=== PATIENT | female | born 1935 | race Caucasian/White ===

== ENCOUNTER 2022-04-21 10:47 | Observation (INO) ==
[2022-04-21 11:56] LABS: Basophils # 0.1 10*3/uL (0.0-0.2); Basophils % 0.7 % (0.0-0.8); Eosinophils # 0.2 10*3/uL (0.0-0.87); Eosinophils % 1.8 % (0.00-10.9); Hematocrit 50.5 VOL% (35.7-47.0); Hemoglobin 17.4 GM/DL (12.0-16.0); Immature Granulocytes % 0.3 %; Immature Granulocytes Absolute 0.03 #; Lymphocytes % 37.3 % (21.3-54.2); Mean Corpuscular HGB Conc 34.5 GM/DL (32-36); Mean Corpuscular Volume 94.2 FL (87-102); Mean Platelet Volume 10.2 FL (9.6-12.0); Monocytes # 0.9 10*3/uL (0.11-0.8); Monocytes % 8.1 % (1.7-12.7); Neutrophils % 51.8 % (38.7-73.9); Platelet Count 222 T/CUMM (130-400); Red Blood Count 5.36 MC/CUMM (3.8-5.5); Red Cell Distribution Width 13.6 % (9.3-17.3); White Blood Count 10.8 T/CUMM (4-12)
[2022-04-21 12:05] LABS: PT Patient Result 11.4 SECS (10.1-12.1)
[2022-04-21 12:14] LABS: Albumin 3.7 G/DL (3.4-5.0); Bilirubin,Total 0.7 MG/DL (0.20-1.00); Calcium 9.6 MG/DL (8.5-10.1); Osmolality,Calculated 284.1 MOS/KG (273-304); Potassium 3.6 MMOL/L (3.5-5.1); Total Protein 6.8 G/DL (6.4-8.2)
[2022-04-21 12:16] LABS: Bilirubin,Urine Negative (Negative); Blood, Urine Negative (Negative); Glucose,Urine (UA) Negative (Negative); Ketones,Urine Negative (Negative); Mucus,Urine Few /LPF (Occasional); Nitrite,Urine Negative (Negative); Protein,Urine 30 mg/dL (Negative); RBC,Urine 1 /HPF (0-4); Squamous Epithelial Cell,Urine Few /HPF (0-10); Transitional Epi Cells,Urine Occasional /HPF (<1); Urine Appearance Clear (Clear); Urine Color Yellow (Yellow); Urine Specific Gravity 1.025 (1.001-1.035)
[2022-04-21 12:35] LABS: Eosinophils 2 % (0-10); Lymphocytes 27 % (20-55); Total Cells Counted 100
[2022-04-21 12:36] LABS: Platelet Estimate Normal
[2022-04-21] MEDS ORDERED: hydrALAZINE 20 MG/1 ML VIAL IV PRN (13:48)
[2022-04-21] MEDS ORDERED: ACETAMINOPHEN 325 MG TABLET PO PRN (13:48)
[2022-04-21] MEDS ORDERED: ONDANSETRON 4 MG/2 ML VIAL IV PRN (13:48)
[2022-04-21] MEDS: ENOXAPARIN 40 MG/0.4 ML SYRINGE SUBCUT SCH (21:32)
[2022-04-22 05:34] LABS: Basophils # 0.1 10*3/uL (0.0-0.2); Basophils % 0.7 % (0.0-0.8); Eosinophils # 0.2 10*3/uL (0.0-0.87); Eosinophils % 1.9 % (0.00-10.9); Hematocrit 49.9 VOL% (35.7-47.0); Hemoglobin 17.1 GM/DL (12.0-16.0); Immature Granulocytes % 0.3 %; Immature Granulocytes Absolute 0.04 #; Lymphocytes # 4.9 10*3/uL (1.4-4.0); Lymphocytes % 40.6 % (21.3-54.2); Mean Corpuscular HGB Conc 34.3 GM/DL (32-36); Mean Corpuscular Volume 95.8 FL (87-102); Mean Platelet Volume 10.4 FL (9.6-12.0); Monocytes % 7.8 % (1.7-12.7); Neutrophils % 48.7 % (38.7-73.9); Platelet Count 227 T/CUMM (130-400); Red Blood Count 5.21 MC/CUMM (3.8-5.5); White Blood Count 12.1 T/CUMM (4-12)
[2022-04-22 05:52] LABS: Calcium 9.4 MG/DL (8.5-10.1); Osmolality,Calculated 285.1 MOS/KG (273-304); Potassium 3.3 MMOL/L (3.5-5.1)
[2022-04-22 05:57] LABS: Eosinophils 2 % (0-10); Lymphocytes 49 % (20-55); Total Cells Counted 100
[2022-04-22 06:02] LABS: Platelet Estimate Adequate
[2022-04-22] MEDS: PANTOPRAZOLE 40 MG TABLET PO SCH (08:38)
[2022-04-22] MEDS: lisinopriL 5 MG TABLET PO SCH (08:39)
[2022-04-22] MEDS: POTASSIUM CHLORIDE 10 MEQ TABLET PO SCH ×2 (08:39→21:28)
[2022-04-22] MEDS: ENOXAPARIN 40 MG/0.4 ML SYRINGE SUBCUT SCH (21:29)
[2022-04-23] MEDS: LEVOTHYROXINE 100 MCG TABLET PO SCH (06:05)
[2022-04-23 06:07] LABS: Calcium 9.3 MG/DL (8.5-10.1); Osmolality,Calculated 286.1 MOS/KG (273-304); Potassium 3.2 MMOL/L (3.5-5.1)
[2022-04-23 06:31] LABS: Basophils # 0.1 10*3/uL (0.0-0.2); Basophils % 0.9 % (0.0-0.8); Eosinophils # 0.3 10*3/uL (0.0-0.87); Eosinophils % 2.8 % (0.00-10.9); Hematocrit 49.6 VOL% (35.7-47.0); Immature Granulocytes % 0.2 %; Immature Granulocytes Absolute 0.02 #; Lymphocytes % 43.2 % (21.3-54.2); Mean Corpuscular HGB Conc 33.5 GM/DL (32-36); Mean Corpuscular Volume 94.5 FL (87-102); Mean Platelet Volume 11.2 FL (9.6-12.0); Monocytes # 0.9 10*3/uL (0.11-0.8); Monocytes % 7.6 % (1.7-12.7); Neutrophils % 45.3 % (38.7-73.9); Platelet Count 229 T/CUMM (130-400); Red Blood Count 5.25 MC/CUMM (3.8-5.5); Red Cell Distribution Width 13.9 % (9.3-17.3); White Blood Count 11.5 T/CUMM (4-12)
[2022-04-23 06:53] LABS: Hemoglobin 16.6 GM/DL (12.0-16.0)
[2022-04-23] MEDS: lisinopriL 5 MG TABLET PO SCH (08:40)
[2022-04-23] MEDS: PANTOPRAZOLE 40 MG TABLET PO SCH (08:40)
[2022-04-23] MEDS: POTASSIUM CHLORIDE 10 MEQ TABLET PO SCH ×2 (08:40→20:57)
[2022-04-23] MEDS ORDERED: MELATONIN 3 MG TABLET PO PRN (12:59)
[2022-04-23] MEDS: ENOXAPARIN 40 MG/0.4 ML SYRINGE SUBCUT SCH (21:00)
[2022-04-24] MEDS: LEVOTHYROXINE 100 MCG TABLET PO SCH (06:26)
[2022-04-24] MEDS ORDERED: amLODIPine 5 MG TABLET PO SCH (09:00)
[2022-04-24] MEDS: lisinopriL 5 MG TABLET PO SCH (09:18)
[2022-04-24] MEDS: PANTOPRAZOLE 40 MG TABLET PO SCH (09:18)
[2022-04-24] MEDS: POTASSIUM CHLORIDE 10 MEQ TABLET PO SCH (09:18)
[2022-04-24 11:26] VITALS: BP 152/68
== END 2022-04-24 12:49 | disposition hospice, home (50) ==
LOC: N.ED 10:47 → N.EDINP 10:47 → SUATTDRO 13:48 → N.3E 15:49
PROVIDERS: ADMIT Internal Medicine Geriatric Medicine; ATTEND Emergency Medicine